=== PATIENT | male | born 1975 | race Caucasian/White ===

== ENCOUNTER 2025-03-06 12:39 | Emergency (ER) | payer BC ==
--- NOTE | 2025-03-06 13:09 | RAD REPORT ---
EXAMINATION: Head Brain Wo Cont CLINICAL INDICATION: Male, 50 years old.ams TECHNIQUE: Axial CT images from the skull base to the vertex without intravenous contrast. Coronal an d sagittal reformatted images were created from the data set. One or more of the following dose reduction techniques were used: Automated exposure control, adjustment of the mA and/or kV according to patient size, and/or iterative reconstruction. Unless otherwise specified, incidental findings do not require dedicated imaging follow-up. [id number]. COMPARISON: No prior exams FINDINGS: INTRACRANIAL: No acute intracranial hemorrhage. No acute large vascular territory infarct. No hydro cephalus. No mass effect or midline shift. No significant white matter disease. VASCULATURE: No visualized abnormalities in the arteries or dural venous sinuses. SCALP/SKULL: No calvarial fracture identified. No acute soft tissue abnormality. SINUSES: The visualized paranasal sinuses are mostly clear. No significant mastoid fluid. IMPRESSION: No acute intracranial abnormality.
[2025-03-06 13:25] LABS: Absolute Lymphocytes (CBC) 1.6 K/uL (0.7-4.9); Hematocrit 48.1 % (39.6-49.0); Hemoglobin 15.9 g/dL (13.6-17.9); MCH 28.1 pg (27.0-35.0); MCHC 33.0 g/dL (32.0-36.0); MCV 85.0 fL (80-100); MPV 7.9 fL (7.6-11.3); Nucleated RBC Absolute Count 0.0 (0-0); Nucleated Red Blood Cells % 0.0 % (0-0); RBC Red Blood Cell Count 5.65 M/uL (4.33-5.43); White Blood Count 6.80 thou/uL (4.3-10.9)
[2025-03-06 13:27] LABS: PT Prothrombin Time 11.2 SECONDS (10-13.0); PTT, Activated Partial Thromb 27.0 SECONDS (27.2-37.4); Protime INR 0.99
[2025-03-06 13:39] LABS: ALT/SGPT 34 U/L (16-61); AST/SGOT 17 U/L (15-37); Albumin 4.2 g/dL (3.4-5.0); Albumin/Globulin Ratio 1.2 (1.1-1.8); Alkaline Phosphatase 83 U/L (45-117); Anion Gap 11.6 mEq/L (5.0-15.0); BUN Blood Urea Nitrogen 19 mg/dL (7-18); Bilirubin Indirect, Calculated 0.2 mg/dL (0.2-0.8); Globulin 3.6 g/dL (2.3-3.5); Glucose Level 122 mg/dL (74-106); Potassium 3.6 mEq/L (3.5-5.1)
[2025-03-06] MEDS ORDERED: NA CHLORIDE 0.9% 1,000 ML ONE (14:08)
[2025-03-06 14:24] LABS: METHAMPHETAM POSITIVE (NEGATIVE); THC Cannibis POSITIVE (NEGATIVE)
--- NOTE | 2025-03-06 15:16 | ER ---
Nurse's Notes [facility] Name: Vick Plunkett Age: 50 yrs Sex: Male : 1975 Arrival Date: 03/06/2025 Time: 12:39 Bed 3 Private MD: Diagnosis: Acute Kindey Injury;Essential (primary) hypertension;Methamphetamine abuse;THC abuse;PCP abuse Presentation: 03/06 12:42 Chief complaint: EMS states: toned out for seizure-like activity. Coronavirus screen: nh2 unable to obtain. Ebola Screen: Unable to complete the Ebola screening because: Patient is unresponsive. Initial Sepsis Screen: Does the patient meet any 2 criteria? Temp <36.0*C (96.8*F)) or > 38.3*C (100.9*F). Altered Mental Status. Yes Does the patient have a suspected source of infection? No. Patient's initial sepsis screen is negative. Risk Assessment: Do you want to hurt yourself or someone else? Unable to obtain. Onset of symptoms was March 06, 2025. Care prior to arrival: Medication(s) given: 1mg of Ativan. 12:42 Method Of Arrival: EMS: [facility] 12:42 Acuity: MEGHANA 2 nh2 Triage Assessment: 12:42 General: Appears ill, unkempt, Behavior is drowsy, unresponsive. Pain: Unable to use nh2 pain scale. Patient is unresponsive. EENT: No signs and/or symptoms were reported regarding the EENT system. Neuro: Level of Consciousness is unresponsive, responds to painful stimuli. Cardiovascular: skin is diaphoretic and clammy. Rhythm is sinus rhythm. Respiratory: Airway is patent Trachea midline Respiratory effort is even, shallow. GI: Abdomen is round obese. : No signs and/or symptoms were reported regarding the genitourinary system. Derm: Skin is intact, with poor turgor Skin is clammy, diaphoretic, Skin is pale, Skin temperature is cool. Musculoskeletal: Circulation, motion, and sensation intact. Historical: - PMHx: 14:18 Hypertensive disorder; nh2 - Immunization history:: Adult Immunizations unknown. - Infectious Disease History:: unable to complete. - Social history:: Smoking status: unknown. Screenin:50 Abuse screen: unable to assess. Nutritional screening: unable to complete. Tuberculosis nh2 screening: unable to complete. 14:17 [facility] ED Fall Risk Assessment (Adult) History of falling in the last 3 months, nh2 including since admission No falls in past 3 months (0 pts) Confusion or Disorientation Yes (5 pts) Intoxicated or Sedated No (0 pts) Impaired Gait No (0 pts) Mobility Assist Device Used No (0 pt) Altered Elimination No (0 pt) Score/Fall Risk Level 3 or more points = High Risk Oriented to surroundings, Maintained a safe environment, Educated pt \\T\\ family on fall prevention, incl call for assistance when getting out of bed, Assessed \\T\\ reinforced patient's understanding of fall precautions. Assessment: 12:50 Reassessment: see triage. nh2 12:55 Reassessment: transported to CT by KSENIA Valera via stretcher. nh2 13:08 Reassessment: pt back from CT, reconnected to monitor, side rails up x2, and nh2 repositioned to supine. 14:13 Reassessment:. Reassessment: pt now awake, alert, and talking. admits to taking "speed" nh2 earlier. denies previous hx of seizures and wanting to harm himself or others. General: Appears in no apparent distress. comfortable, Behavior is calm, cooperative, appropriate for age. Pain: Denies pain. Neuro: Level of Consciousness is awake, alert, obeys commands, Oriented to person, place, time, situation, Appropriate for age. Cardiovascular: Patient's skin is warm and dry. Rhythm is sinus rhythm. Respiratory: Airway is patent Trachea midline Respiratory effort is even, unlabored, Respiratory pattern is regular, symmetrical, Denies cough, shortness of breath. GI: Abdomen is round non-distended. : No signs and/or symptoms were reported regarding the genitourinary system. EENT: No signs and/or symptoms were reported regarding the EENT system. Derm: Skin is intact, Skin is pink, warm \\T\\ dry. Musculoskeletal: Range of motion: intact in all extremities. 15:08 Reassessment: resting in bed with eyes closed, even and unlabored respirations at 18 nh2 breaths/min. Vital Signs: 12:42 BP 147 / 95; Pulse 81; Resp 12; Temp 96.7; Pulse Ox 96% on R/A; Weight 86.18 kg; nh2 13:17 BP 133 / 89; Pulse 59; Resp 14; Pulse Ox 98% on R/A; nh2 14:17 BP 142 / 100; Pulse 83; Resp 17; Pulse Ox 99% on R/A; nh2 15:11 BP 137 / 95; Pulse 74; Resp 18; Pulse Ox 100% on R/A; nh2 ED Course: 12:42 Patient arrived in ED. cm10 12:42 Jose Guadalupe Chery Jr, RN is Primary Nurse. nh2 12:42 Arm band placed on right wrist. nh2 12:46 Triage completed. nh2 12:48 Colt Orellana DO is Attending Physician. ms3 12:50 Patient has correct armband on for positive identification. Placed in gown. Call light nh2 in reach. Side rails up X 1. 12:50 Maintain EMS IV. Dressing intact. Good blood return noted. Site clean \\T\\ dry. Gauge \\T\\ nh 2 site: 20G LAC. Flushed with 10 mL NS. 13:00 CT Head Brain wo Cont In Process Unspecified. EDMS 13:08 Inserted saline lock: 18 gauge in right antecubital area, using aseptic technique. nh2 Blood collected. Flushed with 10 mL NS. 13:12 Straight cath inserted, using sterile technique, 14 Fr. Specimen obtained. Returned nh2 clear yellow urine. Patient tolerated well. 13:12 Initial lab(s) drawn, by me, sent to lab. Urine collected: straight cath specimen, nh2 clear, Amount Returned: 120mL. 14:16 Provided Education on: using call light for assistance. nh2 15:14 Fausto Hutchinson DO is Referral Physician. ms3 15:38 IV discontinued, intact, bleeding controlled, No redness/swelling at site. Pressure nh2 dressing applied. 15:38 No provider procedures requiring assistance completed. nh2 Administered Medications: 14:27 Drug: NS 0.9% IV 1000 ml IV at 1 bolus Per protocol; to be given as a bolus over 60 nh2 minutes Route: IV; Rate: 1 bolus; Site: right forearm; 15:39 Follow up: IV Status: Completed infusion; IV Intake: 1000ml nh2 Medication: 13:17 VIS not applicable for this client. nh2 Intake: 15:39 IV: 1000ml; Total: 1000ml. nh2 Outcome: 15:15 Discharge ordered by . ms3 15:39 Discharged to home ambulatory, nh2 15:39 Condition: improved 15:39 Discharge instructions given to patient, Instructed on discharge instructions, follow up and referral plans. safety practices, Demonstrated understanding of instructions, follow-up care, 15:43 Patient left the ED. 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 nh2 nh2 14:16 12:50 Abuse screen: nh2 nh2
--- NOTE | 2025-03-06 15:16 | EDPHYS ---
Physician Documentation [facility] Name: Vick Plunkett Age: 50 yrs Sex: Male : 1975 Arrival Date: 03/06/2025 Time: 12:39 Bed 3 Private MD: ED Physician Colt Orellana HPI: 03/06 14:14 This 50 yrs old Male presents to ER via EMS with complaints of Altered Mental Status. ms3 14:15 50-year-old male with unknown past medical history presents to the emergency department ms3 via [facility]. EMS states patient was wandering up in the streets and diaphoretic and hyperactive. Patient was talking and was only alert to his name. Patient then became combative when placed in the stretcher and 1 mg of Ativan was given. Patient then became unresponsive. Patient's blood glucose level was 100, heart rate 150.. Historical: - PMHx: 14:18 Hypertensive disorder; nh2 - Immunization history:: Adult Immunizations unknown. - Infectious Disease History:: unable to complete. - Social history:: Smoking status: unknown. ROS: 14:15 Constitutional: Negative for fever, and chills. Cardiovascular: Negative for chest ms3 pain, and palpitations. Respiratory: Negative for shortness of breath, cough, wheezing, and pleuritic chest pain, Abdomen/GI: Negative for abdominal pain, nausea, vomiting, diarrhea, and constipation, Skin: Negative for injury, rash, and discoloration, Exam: 14:12 ECG was reviewed by the Attending Physician. ms3 14:15 Constitutional: This is a well developed, well nourished patient who is awake, alert, ms3 and in no acute distress. Chest/axilla: Normal chest wall appearance and motion. Nontender with no deformity. Cardiovascular: Regular rate and rhythm with a normal S1 and S2. No gallops, murmurs, or rubs. Normal PMI, no JVD. No pulse deficits. Respiratory: Lungs have equal breath sounds bilaterally, clear to auscultation and percussion. No rales, rhonchi or wheezes noted. No increased work of breathing, no retractions or nasal flaring. Abdomen/GI: Soft, non-tender, with normal bowel sounds. No distension or tympany. No guarding or rebound. No evidence of tenderness throughout. 14:15 Skin: diaphoresis. Vital Signs: 12:42 BP 147 / 95; Pulse 81; Resp 12; Temp 96.7; Pulse Ox 96% on R/A; Weight 86.18 kg; nh2 13:17 BP 133 / 89; Pulse 59; Resp 14; Pulse Ox 98% on R/A; nh2 14:17 BP 142 / 100; Pulse 83; Resp 17; Pulse Ox 99% on R/A; nh2 15:11 BP 137 / 95; Pulse 74; Resp 18; Pulse Ox 100% on R/A; nh2 MDM: 12:48 Medical Screening Exam initiated ms3 14:15 Differential Diagnosis: electrolyte abnormality, hypoglycemia, intracranial bleed, ms3 overdose. ED course: Patient currently awake, alert and oriented x 4. Patient states he took speedmethamphetamine earlier. Patient remembers going into [employer] 20:19 Data reviewed: vital signs, nurses notes, lab test result(s), EKG, radiologic studies, ms3 and as a result, I will discharge patient. I considered the following discharge prescriptions or medication management in the emergency department Medications were administered in the Emergency Department. See MAR. Independent interpretation of the following test(s) in the Emergency Department CT Scan: My interpretation is CT head without contrast images were reviewed by me and did not reveal intracranial hemorrhage. Counseling: I had a detailed discussion with the patient and/or guardian regarding the historical points, exam findings, and any diagnostic results supporting the discharge/admit diagnosis, lab results, radiology results, the need for outpatient follow up, to return to the emergency department if symptoms worsen or persist or if there are any questions or concerns that arise at home. Special discussion: I discussed with the patient/guardian in detail that at this point there is no indication for admission to the hospital. It is understood, however, that if the symptoms persist or worsen the patient needs to return immediately for re-evaluation. ED course: On reevaluation patient was alert and oriented x 4, no apparent distress, nontoxic-appearing, speaking full sentences, without pain or symptoms. Patient admits to taking speed prior to hospital visit. Patient advised to not use drugs recreationally. Patient to follow-up with primary care physician 2 to 3 days. All questions were answered. Return precautions were discussed include worsening symptoms, or any other concerns. 03/06 12:46 Order name: Acetaminophen; Complete Time: 14:14 kb 10/08 12:46 Order name: Basic Metabolic Panel; Complete Time: 14:14 kb 03/06 12:46 Order name: CBC with Diff; Complete Time: 14:14 kb 03/06 12:46 Order name: ETOH Level; Complete Time: 14:14 kb 03/06 12:46 Order name: Hepatic Function; Complete Time: 14:14 kb 03/06 12:46 Order name: PT-INR; Complete Time: 14:14 kb 03/06 12:46 Order name: Ptt, Activated; Complete Time: 14:14 kb 03/06 12:46 Order name: Salicylate; Complete Time: 14:14 kb 03/06 12:46 Order name: Urine Drug Screen; Complete Time: 14:46 kb 03/06 14:14 Order name: CK; Complete Time: 15:13 ms3 03/06 12:46 Order name: CT Head Brain wo Cont; Complete Time: 13:22 kb 03/06 12:46 Order name: EKG; Complete Time: 12:46 kb 03/06 12:46 Order name: EKG - Nurse/Tech; Complete Time: 13:17 kb 03/06 12:46 Order name: IV Saline Lock; Complete Time: 13:17 kb 03/06 12:46 Order name: Labs collected and sent; Complete Time: 13:17 kb 03/06 12:46 Order name: Suicide Screening ([place]); Complete Time: 14:25 kb EC:12 Rate is 60 beats/min. Rhythm is regular. QRS [place] is Normal. [place] interval is normal. QRS ms3 interval is normal. Clinical impression: Normal ECG. Interpreted by me. Reviewed by me. Administered Medications: 14:27 Drug: NS 0.9% IV 1000 ml IV at 1 bolus Per protocol; to be given as a bolus over 60 nh2 minutes Route: IV; Rate: 1 bolus; Site: right forearm; 15:39 Follow up: IV Status: Completed infusion; IV Intake: 1000ml nh2 Disposition Summary: 03/06/25 15:15 Discharge Ordered Notes: Location: Home ms3 Condition: Stable ms3 Diagnosis - Acute Kindey Injury ms3 - Essential (primary) hypertension ms3 - Methamphetamine abuse ms3 - THC abuse ms3 - PCP abuse ms3 Followup: ms3 - With: Fausto Hutchinson, DO - When: 2 - 3 days - Reason: Recheck today's complaints Discharge Instructions: - Discharge Summary Sheet ms3 - Hypertension, Adult ms3 - Cannabis Use Disorder ms3 - Methamphetamines Use Disorder ms3 - DASH Eating Plan ms3 Forms: - Medication Reconciliation Form ms3 - Antibiotic Education ms3 - Prescription Opioid Use ms3 - Patient Portal Instructions ms3 - Leadership Thank You Letter ms3 Signatures: Dispatcher [employer] Heather Keller, [place]-[employer] PROGRAM COUNSELOR-Colt Contreras DO DO ms3 Jose Guadalupe Chery Jr, RN RN nh2
[2025-03-06 16:44] VITALS: TEMP 96.7
[2025-03-06 16:46] VITALS: BP 137/95; O2SAT 100
== END 2025-03-06 15:43 | disposition home or self-care (01) ==
LOC: ER 12:39
DX: N17.9 Acute kidney failure, unspecified (principal); F15.10 Other stimulant abuse, uncomplicated; F12.10 Cannabis abuse, uncomplicated; F16.10 Hallucinogen abuse, uncomplicated; I10 Essential (primary) hypertension
CPT/HCPCS: 93005; 85025; 80048; 36415; 82550; 85610; 80076; 85730; 80307; 70450; 51702; 96360; 99285; 80143; 80179; 82077; J7030